=== PATIENT | female | born 1990 | race Caucasian/White ===

== ENCOUNTER 2020-05-06 18:23 | Emergency (ER) | payer MEDICAID, SELFPAY ==
[2020-05-06 18:24] VITALS: BP 86/26; PULSE 89; RESP 16; TEMP 35.6; O2SAT 95; BMI 19.1
--- NOTE | 2020-05-06 18:31 | CT_ITS ---
STUDY: CT BRAIN WITHOUT CONTRAST REASON FOR EXAM: Female, 30 years old. SHAW and quot;EVERY SINGLE DAY FOR MY WHOLE LIFE and quot; N/T FACE, HANDS, KNEES RADIATION DOSAGE (If Supplied By Facility): CTDIvol = ( 44.99 ) mGy, DLP = ( 711.75 ) mGycm TECHNIQUE: Transaxial CT imaging of the brain was performed without administration of intravenous contrast material. Individualized dose optimization techniques were used for this CT. COMPARISON: No relevant priors. FINDINGS: Normal soft tissue structures. Normal calvarium. Normal size ventricles and extra-axial spaces for the patient''s age. Normal white matter tracts of the cerebral hemispheres. Normal basal ganglia and thalami. Normal brainstem. Normal cerebellum. There is no intracranial hemorrhage. There are no findings of an acute ischemic infarction. Normal visualized paranasal sinuses. CT/Brain/Head without Contrast IMPRESSION: Normal unenhanced CT scan of the brain. Electronically Signed: Amor Brannon MD at 19:40 EST , Service support ,
--- NOTE | 2020-05-06 18:36 | ED.VIS.GEN ---
History of Present Illness Chief Complaint: Headache Informant: Patient Onset: Days Context: Gradual Onset Timing: Continuous Current Severity: Mild Maximum Severity: Moderate Narrative: The patient is a 30-year-old female that presents to the emergency department with headache. Patient states she is had a history of migraine headaches. She states she is not sure if it is because she has poor vision. States she gets headaches almost daily. She has followed with her primary care for this. She was started on Topamax. She took a dose yesterday and today. She states she began to have some paresthesias and nausea. She states she is never taken this medication before. She was concerned because of these persistent headache. She is also concerned that she may be having reaction to the medication. She denies any other medical history. She denies any head trauma. She denies any car monoxide exposure. Prior similar symptoms: Yes Recent Illness/Hospitalization: No Past Medical History - Allergies and Home Meds Allergies/Adverse Reactions: Allergies No Known Allergies Allergy (Verified 05/06/20 18:26) Primary Care Physician: Herminia Bucio PREVENTION SPECIALIST, PREVENTION SPECIALIST-C [Primary Care Provider] - Prior records reviewed: Yes Past Medical History: - - Migraine Surgical History: noncontributory Review of Systems General: Denies: Chills, Fever, Sweats Eyes: Denies: Visual changes - bilaterally, Diplopia ENT: Denies: Rhinorrhea, Sore throat Cardiovascular: Denies: Chest pain, Palpitations Respiratory: Denies: Dyspnea, Cough, Dyspnea on exertion Gastrointestinal: Reports: Nausea. Denies: Abdominal pain, Vomiting, Diarrhea, Melena, Hematochezia Genitourinary: Denies: Dysuria, Hematuria, Frequency Musculoskeletal: Denies: Back pain, Extremity Pain Skin: Denies: Rash, Wounds Neurological: Reports: Headache, Parasthesia. Denies: Weakness, Numbness Physical Exam Vital Signs/Narrative: Vital Signs Temp Pulse Resp BP Pulse Ox 05/06/20 18:24 96.1 F L 89 16 86/26 L 95 Inital Vital Signs reviewed: Yes General: Well nourished, Well developed, No Acute Distress Head: Normocephalic, Atraumatic Eyes: Perrl, EOMI ENT: Moist mucous membranes, No rhinorrhea Neck: Supple, Nontender Cardiovascular: Regular rate, Regular rhythm, No murmurs Respiratory: No distress, CTA bilaterally, Chest nontender Abdomen: Soft, Nontender, Nondistended, Normal bowel sounds Back: Nontender, Normal Inspection Extremities: Nontender, No edema Skin: Normal color, No rash Neurological: Alert, Oriented x3, Cranial nerves II-XII grossly intact, Normal Strength, Normal Sensation Psychological: Normal affect, Normal Mood Diagnostic/Tx/Re-eval Clinical Impression(s) from Imaging Studies Brain CT 05/06/20 18:31 IMPRESSION: Normal unenhanced CT scan of the brain. Electronically Signed: Amor Brannon MD at 19:40 EST , Service support , Abnormal Lab Results 05/06/20 05/06/20 19:00 19:00 WBC 6.8 RBC 4.63 Hgb 14.2 Hct 42.2 MCV 91.1 MCH 30.7 MCHC 33.6 RDW Std Deviation 38.3 RDW Coeff of Liz 11.4 L Plt Count 248 MPV 10.0 Immature Gran % (Auto) 0.100 Neut % (Auto) 51.8 Lymph % (Auto) 38.7 [place] % (Auto) 5.3 Eos % (Auto) 3.4 Baso % (Auto) 0.7 Absolute Neuts (auto) 3.5 Absolute Lymphs (auto) 2.64 Nucleated RBC % 0 Urine Test Negative - Medical Decision Making I do feel the patient is likely having a reaction to her Topamax. She is not having Overton-Adonay or other dangerous reaction. However, given her history of headache and the fact she is had no imaging I did obtain noncontrast head CT. This was negative for acute process. Screening labs were obtained and are relatively unremarkable. Patient was given fluids and is resting comfortably. At this point, I do feel the most prudent thing would be to have her stop her Topamax and follow-up with her primary care physician. She is comfortable with this plan of care. Impression 1. Migraine 2. Medication reaction ED Disposition - Plan for ED Patient: Instructions: ED Headache Unspecified, ED Drug Reaction, Other Referrals: Herminia Bucio NP, PREVENTION SPECIALIST-C [Primary Care Provider] -
[2020-05-06] MEDS: 0.9% Normal Saline 1,000 ML 1000 ML IV (19:08)
[2020-05-06 19:18] LABS: Absolute Lymphocyte Count 2.64 X10^3/uL (0.83-4.51); Absolute Neutrophil Count 3.5 X10^3/uL (2.0-7.7); Basophil# 0.05 X10^3/uL; Basophil% 0.7 % (0-1); Eosinophil# 0.23 X10^3/uL; Eosinophils% 3.4 % (0-5); Hematocrit 42.2 % (37-47); Hemoglobin 14.2 g/dL (12.0-15.0); Lymphocyte # 2.64 X10^3/ul (4.0); Lymphocyte % 38.7 % (19-41); Mean Corp Hgb Conc 33.6 g/dL (32-36); Mean Corpuscular Hgb 30.7 pg (27.0-32.0); Mean Corpuscular Volume 91.1 fL (81-99); Monocyte# 0.36 X10^3/uL; Monocyte% 5.3 % (0-10); NRBC Flagged by Analyzer 0 % (0-5); Neutrophil # 3.54 X10^3/uL (2.7-7.7); Neutrophil % 51.8 % (47-70); Platelet Count 248 K/mm3 (150-450); RBC Distribution Width CV 11.4 % (11.6-14.6); RBC Distribution Width SD 38.3 fl (35.1-43.9); Red Blood Count 4.63 M/mm3 (4.2-5.4); White Blood Count 6.8 K/mm3 (4.4-11.0)
[2020-05-06 19:57] LABS: Internal QC Validated? YES +Cl - CLEAR BKGD; Pregnancy, Urine Negative Negative
[2020-05-06 20:04] LABS: ALB/GLOB Ratio 1.2 RATIO (0.9-2.4); AST(SGOT) 10 U/L (15-37); Alanine Aminotransfer ALT/SGPT 23 U/L (13-56); Albumin, Serum 4.2 g/dL (3.2-5.0); Alkaline Phosphatase 68 U/L (45-117); Anion Gap 5 (5-15); BUN 12 mg/dL (7-18); BUN/Creat Ratio 13.9 RATIO (10-20); Calcium,Total 8.6 mg/dL (8.5-10.1); Chloride 113 mmol/L (98-107); Creatinine, Serum 0.86 mg/dL (0.55-1.02); EST Glomerular Filtration Rate 83 mL/min (>60); Est Glom Filt Rate - Afr Amer 101 mL/min (>60); Estimated Creatinine Clearance 75.34 ml/min; Globulin 3.4 g/dL (2.2-4.2); Glucose 82 mg/dL (74-106); Potassium 3.7 mmol/L (3.5-5.1); Protein, Total 7.6 g/dL (6.4-8.2); Sodium Level 142 mmol/L (136-145)
[2020-05-06 20:11] VITALS: BP 108/64; PULSE 59; RESP 16; O2SAT 98
== END 2020-05-06 20:13 | disposition home or self-care (01) ==
LOC: ED 19:41
PROVIDERS: Emergency Provider Emergency Medicine; PCP Nurse Practitioner Family
DX: G43.909 Migraine, unspecified, not intractable, without status migrainosus (principal); T42.6X5A Adverse effect of other antiepileptic and sedative-hypnotic drugs, initial encounter
CPT/HCPCS: 70450; 80053; 81025; 85025; 96360; 99284; J7030

== ENCOUNTER 2020-07-02 08:09 | Emergency (ER) | payer MEDICAID, SELFPAY ==
[2020-07-02 08:09] VITALS: BP 128/89; PULSE 84; RESP 16; TEMP 36.1; O2SAT 97; BMI 19.5
--- NOTE | 2020-07-02 08:26 | ED.VIS.GEN ---
History of Present Illness Chief Complaint: Ear Problem Informant: Patient Onset: Today Current Severity: Mild Maximum Severity: Mild Narrative: Presents secondary to right ear pain that started during the night. She states she does have a history of frequent ear infections and has had tubes placed in her ears twice. She denies recent URI symptoms. - Past Medical History (1) Asthma Status: Chronic Past Medical History - Allergies and Home Meds Allergies/Adverse Reactions: Allergies No Known Allergies Allergy (Verified 07/02/20 08:09) Primary Care Physician: Herminia Bucio COAT REPAIR INSPECTOR, COAT REPAIR INSPECTOR-C [Primary Care Provider] - Prior records reviewed: Yes Surgical History: noncontributory Smoking Status: Current every day smoker Review of Systems General: Denies: Chills, Fever Eyes: Denies: Visual changes - bilaterally ENT: Reports: Right ear pain Cardiovascular: Denies: Chest pain Respiratory: Denies: Dyspnea, Cough Gastrointestinal: Denies: Abdominal pain, Nausea, Vomiting, Diarrhea Musculoskeletal: Denies: Extremity Pain Skin: Denies: Rash Neurological: Reports: Headache Hematologic: Denies: Easy bruising, Easy bleeding Allergy: Denies: Uticaria Physical Exam Vital Signs/Narrative: Vital Signs Temp Pulse Resp BP Pulse Ox 07/02/20 08:09 97.0 F L 84 16 128/89 H 97 Inital Vital Signs reviewed: Yes General: Well nourished, Well developed Head: Normocephalic Eyes: Perrl, EOMI ENT: Moist mucous membranes, - - Significant wax noted in the right ear canal. Appears to be clear fluid behind the tympanic membrane. Left TM is clear.. Negative for: Sinus tenderness Neck: Supple Cardiovascular: Regular rate, Regular rhythm Respiratory: No distress Abdomen: Soft Skin: Normal color, No rash Neurological: Alert, Oriented x3 Psychological: Normal affect Diagnostic/Tx/Re-eval - Medical Decision Making Debrox was placed in the right ear and ear was irrigated. On repeat examination she still has some mild wax noted in the canal. Distal to this is noted erythema with some fluid behind the tympanic membrane. She will be covered with antibiotics and will use Debrox daily at home. ED Disposition - Plan for ED Patient: Disposition: Home or Assisted Living Diagnosis: Otitis media, Cerumen impaction Instructions: ED Cerumen Impaction Treated, ED Otitis Media Antibiotic ... Prescriptions: Amox/Clavulanate Tablet [Augmentin Tablet] 105 mg PO Q12H #20 tab Transmission Status: Pending to [facility]30 Referrals: Herminia Bucio COAT REPAIR INSPECTOR, COAT REPAIR INSPECTOR-C [Primary Care Provider] - 1 Week if not improving
[2020-07-02] MEDS: Carbamide Peroxide 15 ML Bottle 5 DRP OTIC (08:39)
[2020-07-02] MEDS: Amox/Clavulanate 875 MG Tablet PO (09:33)
[2020-07-02 09:36] VITALS: PULSE 83; RESP 16; O2SAT 99
== END 2020-07-02 09:38 | disposition home or self-care (01) ==
PROVIDERS: Emergency Provider Emergency Medicine; PCP Nurse Practitioner Family
DX: H66.91 Otitis media, unspecified, right ear (principal); H61.21 Impacted cerumen, right ear; F17.200 Nicotine dependence, unspecified, uncomplicated
CPT/HCPCS: 99283

== ENCOUNTER 2022-05-25 21:05 | Emergency (ER) | payer MEDICAID, SELFPAY ==
[2022-05-25 21:06] VITALS: BP 123/82; PULSE 97; RESP 17; TEMP 36.1; O2SAT 99; BMI 19.8
--- NOTE | 2022-05-25 21:48 | RAD_ITS ---
INDICATION: Cough, left rib pain EXAMINATION/TECHNIQUE: X-RAY - XR Ribs Unilateral W/ PA Chest Min 3 Views COMPARISON: None. FINDINGS: SOFT TISSUES: No soft tissue swelling or gas. BONES: No displaced fracture. No sclerotic or destructive changes observed. VISUALIZED LUNGS: Clear. No pneumothorax. RAD/Ribs Uni Min 3V w/PA Chest IMPRESSION: No evidence of displaced rib fracture. Electronically Signed: Victorino Moffett MD at 22:11 EST ,
--- NOTE | 2022-05-25 21:54 | EDS_ITS ---
HPI History of Present Illness Chief Complaint: Back Informant: patient Onset/Context/Timing Onset: Today and Hours (1-2) Context: Sudden Onset Timing: Continuous Quality: Sharp Location: Left thoracic area Worsened by: Standing Relieved by: Laying down Narrative Narrative: Patient presents with pain in the left side of her back and left chest area that began tonight. Patient states it began rather suddenly. Patient describes it as sharp. Patient states it is over the left thoracic area and radiates around to her left lateral chest. Patient states it is worse with standing and better when she is able to lie down. Patient denies any shortness of breath. Patient denies any nausea or vomiting. Patient admits to a mild headache. Patient admits to some subjective chills. Patient denies any nausea or vomiting. [facility] Medical History (Updated 05/25/22 @ 22:[address] Santiago Beaulieu DO) Asthma Home Medications amoxicillin 875 mg-potassium clavulanate 125 mg tablet 875 mg PO Q12H #20 tabs 07/02/20 [Rx Last Taken Unknown] Allergy/AdvReac Type Severity Reaction Status Date / Time No Known Allergies Allergy Verified 05/25/22 21:08 Surgical History (Updated 05/25/22 @ 21:[address] Santiago Beaulieu DO) Hx of tonsillectomy Hx of tympanostomy tubes Social History Smoking Status: Current every day smoker tobacco type: cigarettes ROS ROS ED Constitutional Constitutional ED: Reports chills and subjective; Denies fever(s) Eyes Eyes: Denies blurry vision or change in vision ENT ENT ED: Denies rhinorrhea or sore throat Cardiovascular Cardiovascular: Reports chest pain; Denies palpitations Respiratory/Chest Respiratory/Chest: Denies cough or dyspnea Gastrointestinal Gastrointestinal: Denies nausea or vomiting Genitourinary Genitourinary ED: Denies dysuria or hematuria Musculoskeletal Musculoskeletal: Reports back pain; Denies neck pain Integumentary Denies abscess or rash Neurologic Neurologic: Reports headache(s); Denies weakness Allergic/Immunologic Allergic/Immunologic ED: Denies mouth swelling or urticaria EXAM Physical Exam Const Vital Signs: 05/25/22 21:06 Temperature 97.0 F L Temperature Source Temporal Pulse Rate 97 Respiratory Rate 17 Blood Pressure 123/82 H Blood Pressure Mean 95 Pulse Ox 99 Oxygen Delivery Method Room Air Positive well nourished and well developed General Appearance ED: well developed and NAD HEENT Reports moist mucous membranes Neck supple and no JVD Resp normal respiratory effort and clear to auscultation bilaterally Cardio regular rate, regular rhythm and no murmurs GI normal to inspection, nondistended, normoactive bowel sounds and non-tender Palpation: soft Back/Spine Back/Spine Narrative: There is tenderness over the left posterior thoracic paraspinal area. There is no bony crepitance or step-off. There is no edema or ecchymosis. There is no deformity noted. Range of motion was limited in all motions of the thoracic spine secondary to pain. Thoracic Spine / Upper Back: paraspinal muscle tenderness left Extremity normal to inspection General Extremety ED: Negative for edema or tenderness General Extremity: Negative for edema Neuro oriented x3, CN's II-XII intact bilaterally and no sensory deficits noted Sensorium / Orientation: alert Motor Exam: strength 5/5 throughout Psych mental status grossly normal Skin no rashes or lesions noted MDM MDM MDM Narrative Medical decision making narrative: Differential diagnosis includes musculoskeletal etiology, pneumonia, pneumothorax, and pleurisy. X-rays of the left ribs will be obtained to assess for rib fracture, pneumonia, and pneumothorax. Patient is PERC negative and has no risk factors for pulmonary embolism. I do not feel this is in the differential diagnosis. Patient has no cardiac risk factors. I do not feel that this is cardiac in etiology. Radiography Diagnostic Testing: Clinical Impression(s) from Imaging Studies Ribs w/Chest X-Ray 05/25/22 21:48 IMPRESSION: No evidence of displaced rib fracture. Electronically Signed: Victorino Moffett MD at 22:11 EST Reading Location ID and State: [facility] / [place] Tel , Service support , X-rays of the left ribs were obtained. There are 5 views. On my independent interpretation, there are no rib fractures noted. There is no pneumothorax. There is no pneumonia. There is no other acute process noted. Radiologist also interpreted the x-rays and agrees. Treatment and Re-Evaluation Narrative: Patient was advised of her findings. Patient was advised that this is most likely a muscular strain. Patient was instructed to use ice to the area. Patient was instructed to take Tylenol or ibuprofen as needed for pain. Patient was instructed to follow-up with her primary care physician in 5 to 7 days. Patient understood and was agreeable with the plan. All questions were answered. Discharge Plan Triage Chief Complaint: Back ED Provider: Santiago Beaulieu Dx/Rx/DC Orders Clinical Impression: Acute thoracic myofascial strain Instructions: ED Back Sprain/Strain Prescriptions: No Action amoxicillin-pot clavulanate 875 MG tablet 875 mg PO Q12H Qty: 20 0RF Primary Care Provider: Herminia Bucio NP Referrals: Herminia Bucio NP, CRUISE COUNSELOR-C [Primary Care Provider] - 5-7 Days Disposition Disposition: Home, Self Care
[2022-05-25 22:41] VITALS: BP 122/62; PULSE 78; RESP 18
== END 2022-05-25 22:42 | disposition home or self-care (01) ==
PROVIDERS: Emergency Provider Emergency Medicine; PCP Nurse Practitioner Family; Visit Provider Emergency Medicine
DX: S29.012A Strain of muscle and tendon of back wall of thorax, initial encounter (principal); X58.XXXA Exposure to other specified factors, initial encounter; F17.210 Nicotine dependence, cigarettes, uncomplicated
CPT/HCPCS: 71101; 99284

== ENCOUNTER → 2023-02-13 | Outpatient (CLI) | payer MEDICAID, SELFPAY ==
[2023-02-13 12:30] VITALS: PULSE 100; PULSE 101; PULSE 103; PULSE 104; PULSE 105; PULSE 86; PULSE 87; PULSE 98; O2SAT 93; O2SAT 94; O2SAT 95; O2SAT 96; O2SAT 97; O2SAT 99
--- NOTE | 2023-02-14 08:07 | PCM.PSN.6M ---
PSN 6 Minute Walk Test 6 Minute Walk Test 6 Minute Walk Test: 6 Minute Walk Test PSN:6-Minute Walk Test Start: 02/13/23 13:32 Freq: Status: Active Protocol: [id number].6MINW Document 02/13/23 12:30 JR (Rec: 02/13/23 13:34 JR Desktop) 6 Minute Walk Test Date Performed 02/13/23 Time Performed 12:30 Height 5 ft 3 in Weight: 107 lb Weight in Pounds 107.[address]: Gregory Hutton Assistive device used: None Pre-test Oxygen Delivery Method Room Air Pulse Ox 99 Pulse Rate (60-100) 87 Dyspnea Delisa Scale (0-10) 4 Exertion Delisa Scale (6-20) 6 1st minute Oxygen Delivery Method Room Air Pulse Ox 96 Pulse Rate (60-100) 101 H 2nd minute Oxygen Delivery Method Room Air Pulse Ox 95 Pulse Rate (60-100) 105 H 3rd minute Oxygen Delivery Method Room Air Pulse Ox 94 Pulse Rate (60-100) 103 H 4th minute Oxygen Delivery Method Room Air Pulse Ox 93 Pulse Rate (60-100) 104 H 5th minute Oxygen Delivery Method Room Air Pulse Ox 97 Pulse Rate (60-100) 100 6th minute Oxygen Delivery Method Room Air Pulse Ox 93 Pulse Rate (60-100) 98 Dyspnea Delisa Scale (0-10) 4 Exertion Delisa Scale (6-20) 11 Post-test Oxygen Delivery Method Room Air Pulse Ox 99 Pulse Rate (60-100) 86 Full Laps Walked 20 Partial Lap, Number of Tiles Walked 10 Total Distance Walked (ft) 1190 Interpretation Interpretation: The patient ambulated 1190 feet over the course of 6 minutes beginning on room air without assistive devices. Pretesting oxygen saturation was noted to be 99% on room air. With ambulation, the chana oxygen saturation was 93%. This represents a significant exertional oxygen desaturation. Recommendations Recommendations: There is no indication for the use of supplemental oxygen at this time. However, close interval follow-up was recommended, given the degree of oxygen desaturation noted during this study.
== END | disposition home or self-care (01) ==
LOC: PSN 12:35
PROVIDERS: PCP Nurse Practitioner Family; Referring Provider Internal Medicine Critical Care Medicine; Visit Provider Internal Medicine Critical Care Medicine
DX: R06.00 Dyspnea, unspecified (principal); R94.2 Abnormal results of pulmonary function studies
CPT/HCPCS: 94618

== ENCOUNTER → 2023-02-21 | Outpatient (CLI) | payer MEDICAID, SELFPAY ==
--- NOTE | 2023-02-21 14:02 | ECHOD_ITS ---
Reason For Study: DYSPNEA Procedure This was a 2D Doppler, Color Flow transthoracic echocardiogram. Exam performed in department. Left Ventricle Normal size and thickness. The left ventricular ejection fraction is 65 %. Normal diastology for age. Right Ventricle Normal right ventricle. Atria The left and right atria are normal. Mitral Valve The mitral valve is structurally normal. No prolapse or stenosis seen. Tricuspid Valve Trivial tricuspid valve insufficiency. Normal pulmonary artery pressure. Aortic Valve Trisinus/trileaflet aortic valve. Pulmonic Valve The pulmonic valve is not well visualized. Great Vessels Normal sized aortic root. Pericardium/Pleural No pericardial effusion. MMode/2D Measurements & Calculations LVIDd: 4.0 cm IVSd: 0.78 cm Ao root diam: 2.5 cm LVIDs: 2.5 cm LVPWd: 0.67 cm RVDd: 2.7 cm FS: 36.6 % LAV(MOD-bp): 25.6 ml LVAd ap4: 22.5 cm2 SV(MOD-sp4): 30.7 ml LAV(MOD-bp) Indexed: 17.2 ml/m2 LVLd ap4: 8.1 cm LAV(MOD-sp2): 31.2 ml EDV(MOD-sp4): 52.6 ml LAV(MOD-sp4): 17.3 ml EDV(sp4-el): 53.1 ml LVAs ap4: 13.0 cm2 LVLs ap4: 6.8 cm ESV(MOD-sp4): 21.8 ml ESV(sp4-el): 21.1 ml EF(MOD-sp4): 58.4 % EF(sp4-el): 60.3 % SV(sp4-el): 32.0 ml LA A4 area: 10.5 cm2 LA dimension(2D): 2.6 cm RA A4 area: 11.0 cm2 TAPSE: 2.0 cm Time Measurements MV dec time: 0.23 sec Doppler Measurements & Calculations MV E max adal: 92.4 cm/sec Lat Peak E' Adal: 19.5 cm/sec Med Peak E' Adal: 12.9 cm/sec MV A max adal: 49.7 cm/sec E/E' lat: 4.7 E/E' med: 7.2 MV E/A: 1.9 MV V2 max: 99.4 cm/sec Ao V2 max: 107.1 cm/sec MV max P.0 mmHg MV dec slope: 413.5 cm/sec2 Ao max P.6 mmHg MV V2 mean: 62.8 cm/sec Ao V2 mean: 78.6 cm/sec MV mean P.8 mmHg Ao mean P.8 mmHg MV V2 VTI: 27.0 cm Ao V2 VTI: 25.0 cm AV (velocity ratio): 0.77 LV V1 max: 93.5 cm/sec PA V2 max: 101.5 cm/sec LV V1 max P.5 mmHg PA V2 mean: 71.3 cm/sec LV V1 mean P.0 mmHg LV V1 mean: 66.9 cm/sec LV V1 VTI: 19.2 cm ECHO/Echo Complete Interpretation Summary The left ventricular ejection fraction is 65 %. Ordering Physician: Gregory Hutton Referring Physician: Gregory Hutton Performed By: Kalyani Gallegos RCS
== END | disposition home or self-care (01) ==
LOC: CVS 14:02
PROVIDERS: PCP Nurse Practitioner Family; Referring Provider Internal Medicine Critical Care Medicine; Visit Provider Internal Medicine Critical Care Medicine
DX: R06.02 Shortness of breath (principal)
CPT/HCPCS: 93306

== ENCOUNTER → 2023-03-06 | Outpatient (CLI) | payer MEDICAID, SELFPAY ==
--- NOTE | 2023-03-06 17:38 | CT_ITS ---
INDICATION: Restriction on PFT EXAMINATION: CT Chest W/O Contrast Injection TECHNIQUE: Helically acquired images were obtained of the chest without IV contrast. A radiation dose optimization technique was used for this scan. COMPARISON: None. FINDINGS: Lungs: Unremarkable Mediastinum: The cardiomediastinal silhouette is not enlarged. No mediastinal, hilar or axillary adenopathy. The thoracic aorta is unremarkable. No coronary artery calcification. Pleura: Unremarkable Bones/Soft tissues: No suspicious osseous or soft tissue lesions Upper abdomen: No visualized abnormalities in the upper abdomen. CT/Chest without Contrast IMPRESSION: No acute abnormalities in the chest. Electronically Signed: Chandu Boo MD at 0:04 EST ,
== END | disposition home or self-care (01) ==
LOC: CT 17:36
PROVIDERS: PCP Nurse Practitioner Family; Referring Provider Internal Medicine Critical Care Medicine; Visit Provider Internal Medicine Critical Care Medicine
DX: R06.00 Dyspnea, unspecified (principal); R94.2 Abnormal results of pulmonary function studies
CPT/HCPCS: 71250

== ENCOUNTER → 2023-06-05 | Outpatient (CLI) | payer MEDICAID, SELFPAY ==
[2023-06-05 13:08] LABS: HIV - WCH Non-Reactive (Nonreactive); Hepatitis C Antibody Non-Reactive (Nonreactive); Syphilis Antibodies Non-reactive
[2023-06-06 07:08] LABS: HSV 1 IgG < 0.91 index (0.00-0.90); HSV 2 IgG 4.54 index (0.00-0.90)
[2023-06-07 08:12] LABS: Chlamydia By Nucleic Acid AMP Negative (Negative); Gonococcus By Nucleic Acid AMP Negative (Negative)
[2023-06-08 12:09] LABS: HPV APTIMA, High Risk Negative (Negative)
== END | disposition home or self-care (01) ==
PROVIDERS: PCP Nurse Practitioner Family; Referring Provider Nurse Practitioner Women's Health; Visit Provider Nurse Practitioner Women's Health
DX: Z12.4 Encounter for screening for malignant neoplasm of cervix (principal); N89.8 Other specified noninflammatory disorders of vagina; Z20.2 Contact with and (suspected) exposure to infections with a predominantly sexual mode of transmission
CPT/HCPCS: 36415; 86695; 86696; 86703; 86780; 86803; 87070; 87205; 87491; 87591; 87624; 88175; G0145

== ENCOUNTER 2023-07-31 04:14 | Emergency (ER) | payer MEDICAID, SELFPAY ==
[2023-07-31] MEDS: Lidocaine 1% (20 ml mdv) 20 ML Vial INFILT (04:29)
[2023-07-31] MEDS: Diphth,Pertuss(Acell),Tet Vac 0.5 ML Vial IM (04:29)
[2023-07-31 04:31] VITALS: BP 119/91; PULSE 87; RESP 16; TEMP 36.3; O2SAT 98; BMI 20.5
--- NOTE | 2023-07-31 05:05 | EX.ED.DYSGE1 ---
HPI History of Present Illness Chief Complaint: Wound Informant: patient Narrative Narrative: Patient presents by ambulance at around 4 AM with her 2 children after locking the 3 of them in a closet to escape their cat, who was attacking them all. They state it is an indoor cat, is not ill, has not been outside recently, and this started in the middle of the night with one of the 2 children it woke mom up because the cat was attacking her. The cat apparently just had kittens. Mom got involved and the cat attacked her as well. Mom/patient states that she sustained scratches and no bites. Scratches to the face, and a laceration to her left ear. Last tetanus was more than 10 years ago she thinks. She denies any other injuries. No injury to her eye. PFSH PFSH Medical History Allergic rhinitis Anxiety and depression Asthma Bacterial vaginosis Cervical motion tenderness Contraception management Heartburn Hiatal hernia with GERD History of chlamydia infection Ovary palpable Reactive airway disease Tobacco use Upper respiratory infection Vaginal discharge Wheezing Home Medications NK 07/31/23 [History Last Taken Unknown] Allergy/AdvReac Type Severity Reaction Status Date / Time No Known Allergies Allergy Verified 07/31/23 04:15 Family History Grandmother Breast cancer Maternal Surgical History Hx of tonsillectomy Hx of tympanostomy tubes Social History number of children: 3 current occupational status: employed current occupation: [employer] Smoking Status: Current every day smoker tobacco type: cigarettes Electronic Cigarette Use: with nicotine how long ago did patient quit smoking: cigarettes alcohol intake: never substance use type: does not use seatbelt use: always do you feel safe at home: Yes additional social history: Single 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 Stellate laceration to the left ear, and involves the earlobe as well as a fold over cartilage toward the inferior aspect of the EAC. Tragus is not involved, but just outside of it. Total length is about 2 cm, stellate in 3 different directions, there is noted soft tissue loss and no cartilage grossly exposed. Extremity normal to inspection Extremity Narrative: F ROM x 4 General Extremety ED: Negative for tenderness Neuro oriented x3, CN's II-XII intact bilaterally and no sensory deficits noted Sensorium / Orientation: alert Motor Exam: strength 5/5 throughout Psych mental status grossly normal Mood & Affect: anxious Skin Skin Narrative: See HEENT exam. No signs of trauma elsewhere. MDM MDM MDM Narrative Medical decision making narrative: Patient's tetanus was updated, and the wound was anesthetized locally and repaired see the procedure note. Advised to follow-up for wound reevaluation and suture removal. I do not think she needs antibiotics for infection prophylaxis, she did not have any bites, the ear was irrigated thoroughly and appeared clean. Procedures Lacerations L ear: Length: 2.5 cm Depth: Sub Q Shape: Stellate Prep: Sterile Conditions and Chlorhexadine Laceration repair: Irrigated, Lidocaine (plain 1%, 2cc), Local and Skin sutures Irrigated (ml): 30 Number of Sutures/Parlier: 6 Suture Information: Ethilon, Simple and 5-0 Discharge Plan Triage Chief Complaint: Wound ED Provider: Kevin Macdonald Dx/Rx/DC Orders Clinical Impression: Cat scratch of face, Immunization, tetanus-diphtheria, Laceration of left ear Instructions: Animal Bites and Scratches, ED FACIAL LACERATION Suture Tape Prescriptions: No Action NK Primary Care Provider: Herminia Bucio NP Referrals: Herminia Bucio DURALUMIN METALWORKER, DURALUMIN METALWORKER-C [Primary Care Provider] - 7 Days for suture removal (or urgent care/ER) Activity Restrictions/Additional Instructions: keep neosporin or other antibiotic ointment on area at least until scabbed and no drainage. Disposition Disposition: Home, Self Care Discharge Date/Time: 07/31/23 05:20
== END 2023-07-31 05:20 | disposition home or self-care (01) ==
PROVIDERS: Emergency Provider Emergency Medicine; PCP Nurse Practitioner Family; Visit Provider Emergency Medicine
DX: S01.312A Laceration without foreign body of left ear, initial encounter (principal); W55.01XA Bitten by cat, initial encounter; Y93.89 Activity, other specified; Y99.8 Other external cause status; F17.210 Nicotine dependence, cigarettes, uncomplicated; Z23 Encounter for immunization
CPT/HCPCS: 12011; 90471; 90715; 99283

== ENCOUNTER 2023-10-20 13:08 | Emergency (ER) | payer MEDICAID, SELFPAY ==
[2023-10-20 13:08] VITALS: BP 123/93; PULSE 83; RESP 14; TEMP 36.2; O2SAT 100; BMI 20.9
--- NOTE | 2023-10-20 13:18 | ED.VIS.FEGU ---
HPI HPI - Female History of Present Illness Chief Complaint: Female C/O Detail of Chief Complaint: Yeast infection Informant: patient Narrative Narrative: Patient presents secondary to yeast infection. She states for the past 8 or 9 days she has had white discharge and itching. She was seen at the emergency department at [facility] last week. She had a pelvic exam. I was able to review those results. Her urinalysis negative and her gonorrhea and Chlamydia testing were negative. Patient states that she was given a dose of Diflucan and then Monistat cream for home. She states that the cream does not work and she is here to get another pill. She has been on antibiotics recently but is not currently on antibiotics. [facility] Medical History Wheezing Vaginal discharge Upper respiratory infection Tobacco use Reactive airway disease Contraception management Cervical motion tenderness Bacterial vaginosis Allergic rhinitis History of chlamydia infection Anxiety and depression Ovary palpable Hiatal hernia with GERD Heartburn Asthma Home Medications ?Medication ?Instructions ?Recorded ?Last Taken ?Type medroxyprogesterone 150 mg/mL mg IM 08/28/23 Unknown History intramuscular suspension fluconazole 200 mg tablet 200 mg PO DAILY #1 TAB 10/20/23 Unknown Rx (Diflucan) Allergy/AdvReac Type Severity Reaction Status Date / Time No Known Allergies Allergy Verified 08/28/23 10:01 Family History Grandmother Breast cancer Maternal Surgical History Hx of tympanostomy tubes Hx of tonsillectomy Social History number of children: 3 current occupational status: employed current occupation: [employer] Smoking Status: Current every day smoker tobacco type: cigarettes Electronic Cigarette Use: with nicotine how long ago did patient quit smoking: cigarettes alcohol intake: never substance use type: does not use seatbelt use: always do you feel safe at home: Yes additional social history: Single 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, weed, alcohol and crack ROS ROS ED Constitutional Constitutional ED: Denies chills or fever(s) Eyes Eyes: Denies discharge from eye(s) ENT ENT ED: Denies discharge from eye(s), rhinorrhea or sore throat Cardiovascular Cardiovascular: Denies chest pain or palpitations Respiratory/Chest Respiratory/Chest: Denies cough or dyspnea Gastrointestinal Gastrointestinal: Denies abdominal pain, nausea or vomiting Genitourinary Genitourinary ED: Reports other Details: White vaginal discharge and itching ; Denies dysuria Musculoskeletal Musculoskeletal: Denies back pain or extremity pain Integumentary Denies Abrasions or rash Neurologic Neurologic: Denies headache(s) or weakness Psychiatric Psychiatric: Denies anxiety or depression Allergic/Immunologic Allergic/Immunologic ED: Denies lip swelling or urticaria EXAM Physical Exam Const Vital Signs: 10/20/23 13:08 Temperature 97.2 F L Temperature Source Temporal Pulse Rate 83 Respiratory Rate 14 Blood Pressure 123/93 H Blood Pressure Mean 103 Pulse Ox 100 Oxygen Delivery Method Room Air Positive well nourished and well developed General Appearance ED: well developed HEENT Reports moist mucous membranes Chest Wall inspection of chest normal and palpation of chest normal Resp normal respiratory effort and clear to auscultation bilaterally Cardio regular rate and regular rhythm GI soft to palpation and non-tender Extremity normal to inspection Neuro oriented x3 and no sensory deficits noted Motor Exam: strength 5/5 throughout Psych mental status grossly normal Skin no rashes or lesions noted MDM MDM MDM Narrative Medical decision making narrative: X-rays able to review the patient's pelvic exam from last week and she denies any change in symptoms, we will forego pelvic exam today. Patient be given a dose of Diflucan here. I will write her prescription for 1 additional tab that she can take in 1 week. Patient comfortable with the plan. Discharge Plan Triage Chief Complaint: Female C/O ED Provider: Chrissie Gurrola Dx/Rx/DC Orders Clinical Impression: Yeast vaginitis Instructions: ED SONDRA VAGINITIS Prescriptions: New fluconazole [Diflucan] 200 mg tablet 200 mg PO DAILY Qty: 1 0RF No Action medroxyprogesterone 150 mg/mL suspension IM Primary Care Provider: Herminia Bucio NP Referrals: Herminia Bucio NP, [employer] [Primary Care Provider] - 1 Week if not improving Print Language: Divehi Disposition Disposition: Home, Self Care
[2023-10-20] MEDS: Fluconazole 100 MG Tablet 200 MG PO (13:43)
[2023-10-20 13:45] VITALS: BP 130/85; PULSE 72; RESP 18; TEMP 36.7; O2SAT 99
== END 2023-10-20 13:46 | disposition home or self-care (01) ==
LOC: ED 13:28
PROVIDERS: Emergency Provider Emergency Medicine; Visit Provider Emergency Medicine
DX: B37.31 Acute candidiasis of vulva and vagina (principal); F17.210 Nicotine dependence, cigarettes, uncomplicated
CPT/HCPCS: 99282

== ENCOUNTER 2023-12-19 13:49 | Emergency (ER) | payer MEDICAID, SELFPAY ==
[2023-12-19 13:50] VITALS: BP 132/90; PULSE 113; RESP 20; TEMP 36.6; O2SAT 98; BMI 20.9
[2023-12-19 14:20] LABS: Absolute Lymphocyte Count 0.53 X10^3/uL (0.83-4.51); Absolute Neutrophil Count 6.8 X10^3/uL (2.0-7.7); Basophil# 0.02 X10^3/uL; Basophil% 0.3 % (0-1); Hematocrit 42.5 % (37-47); Hemoglobin 14.7 g/dL (12.0-15.0); Lymphocyte # 0.53 X10^3/ul (0.83-4.51); Mean Corp Hgb Conc 34.6 g/dL (32-36); Mean Corpuscular Hgb 30.2 pg (27.0-32.0); Mean Corpuscular Volume 87.3 fL (81-99); Mean Platelet Vol. 10.1 fl (6.2-12.0); Monocyte% 2.6 % (0-10); NRBC Flagged by Analyzer 0 % (0-5); Neutrophil # 6.84 X10^3/uL (2.7-7.7); Neutrophil % 89.8 % (47-70); POSITIVE DIFFERENTIAL YES; Platelet Count 197 K/mm3 (150-450); RBC Distribution Width CV 12.1 % (11.6-14.6); RBC Distribution Width SD 38.8 fl (35.1-43.9); Red Blood Count 4.87 M/mm3 (4.2-5.4); White Blood Count 7.6 K/mm3 (4.4-11.0)
--- NOTE | 2023-12-19 14:34 | EDS_ITS ---
HPI History of Present Illness Chief Complaint: Nausea/Vomiting Informant: patient and spouse/S.O. Narrative Narrative: Presents for nontraumatic headache generalized soreness vomiting diarrhea since 3 AM yesterday morning 36 hours ago. States vomiting diarrhea too much.. Last time was 20 minutes ago. No recent antibiotics. Denies fevers or chills denies cough denies abdominal pain. She has a Depo shot therefore does not have menstrual periods. Had similar symptoms with stomach bug in the past. Denies sick contacts. Denies any allergies. She unable keep anything down. She cannot Emergency Department. Prior similar symptoms: Yes [facility] Medical History Wheezing Vaginal discharge Upper respiratory infection Tobacco use Reactive airway disease Contraception management Cervical motion tenderness Bacterial vaginosis Allergic rhinitis History of chlamydia infection Anxiety and depression Ovary palpable Hiatal hernia with GERD Heartburn Asthma Home Medications ?Medication ?Instructions ?Recorded ?Last Taken ?Type medroxyprogesterone 150 mg/mL mg IM 08/28/23 Unknown History intramuscular suspension albuterol sulfate 90 mcg/actuation inhalation 11/13/23 Unknown History aerosol inhaler ibuprofen 600 mg tablet 600 mg PO Q6 PRN 11/13/23 Unknown History omeprazole 20 mg capsule,delayed 20 mg PO QDAY 11/13/23 Unknown History release ondansetron 4 mg disintegrating 4 mg PO Q6-8H PRN 11/13/23 Unknown History tablet pseudoephedrine HCl 30 mg tablet mg PO 11/13/23 Unknown History (Nasal Decongestant (pseudoephedrine)) valacyclovir 500 mg tablet 500 mg PO QDAY 11/13/23 Unknown History ondansetron 4 mg disintegrating 4 mg PO Q8H PRN PRN Nausea #10 tabs 12/19/23 Unknown Rx tablet Allergy/AdvReac Type Severity Reaction Status Date / Time No Known Allergies Allergy Verified 12/19/23 13:50 Family History Grandmother Breast cancer Maternal Surgical History Hx of tympanostomy tubes Hx of tonsillectomy Social History number of children: 3 current occupational status: employed current occupation: [employer] Smoking Status: Current every day smoker tobacco type: cigarettes Electronic Cigarette Use: with nicotine how long ago did patient quit smoking: cigarettes alcohol intake: never substance use type: does not use seatbelt use: always do you feel safe at home: Yes additional social history: Single 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, weed, alcohol and crack ROS ROS ED Constitutional Constitutional ED: Denies chills, fever(s) or sweats Eyes Eyes: Denies change in vision ENT ENT ED: Denies dysphagia or sore throat Cardiovascular Cardiovascular: Denies chest pain, leg edema, palpitations or racing heartbeat Respiratory/Chest Respiratory/Chest: Denies cough, dyspnea or dyspnea on exertion Gastrointestinal Gastrointestinal: Reports diarrhea, nausea and vomiting; Denies abdominal pain Genitourinary Genitourinary ED: Denies dysuria, hematuria or urinary frequency Musculoskeletal Musculoskeletal: Reports myalgias; Denies back pain, extremity pain or neck pain Integumentary Denies rash or wounds Neurologic Neurologic: Reports headache(s); Denies paresthesias or weakness EXAM Physical Exam Const Vital Signs: 12/19/23 13:50 12/19/23 16:03 12/19/23 16:41 Temperature 97.8 F 98 F Temperature Source Temporal Pulse Rate 113 H 98 80 Respiratory Rate 20 H 16 16 Blood Pressure 132/90 H 103/58 L 99/60 Blood Pressure Mean 104 73 73 Pulse Ox 98 98 99 Oxygen Delivery Method Room Air Positive well nourished and well developed General Appearance ED: well developed and NAD HEENT HEENT Narrative: Slight dry mucosal membranes. normocephalic and atraumatic Eyes EOMs intact bilaterally and conjunctivae normal General Eye ED: Yes normal appearance of both eyes Neck no lymphadenopathy and supple Neck Narrative: No meningismus General: Negative for tenderness Chest Wall Chest: Negative for tenderness Resp normal respiratory effort and normal air movement Effort and Inspection: symmetric chest movement; Negative for respiratory distress Cardio regular rhythm and no murmurs Rate: tachycardic Peripheral Pulses: pulses 2+ throughout GI normal to inspection, nondistended, normoactive bowel sounds and non-tender GI Narrative: Negative Bello's or McBurney's tenderness. Palpation: Negative for guarding or rebound tenderness present Back/Spine no CVA tenderness and no thoracic nor lumbar tenderness Extremity normal to inspection General Extremety ED: Negative for edema or tenderness General Extremity: Negative for edema Neuro oriented x3, CN's II-XII intact bilaterally and no sensory deficits noted Sensorium / Orientation: awake and alert Skin no rashes or lesions noted and no wounds MDM MDM MDM Narrative Medical decision making narrative: Interventions / MDM: Differential diagnosis: Dehydration, electrolyte abnormalities, vomiting di arrhea Diagnosis considered but do not suspect: No C. difficile risk factors, nonsurgical abdomen. My EKG interpretation: N/A Imaging independently reviewed and interpreted by myself: N/A External documents reviewed: N/A Test considered but not ordered:N/A ED course: Patient slight dry mucosal membranes tachycardia vomiting diarrhea nonbloody. IV established for fluids antiemetics and Toradol as she denies any bloody stools. She declines any COVID testing. Labs urine noting ketones. Creatinine normal slight hypokalemia. Clinically feeling better on reevaluation trial oral fluids. Prescription of Zofran sent to her pharmacy. Heart rate improved with fluids. She continue oral fluids for hydration. Outpatient follow-up or return precaution discussed. All questions were answered. Re-evaluation: stable Disposition discussed with patient/family/significant other: Patient Case discussed with consulting clinician: N/A This note was generated with [employer] dictation software. It may contain incorrect words, spelling, and punctuation that were not noted in checking the note before signing. Lab Data Attestation: I reviewed the patient's lab results. Labs: Laboratory Results - last 24 hr 12/19/23 12/19/23 14:03 15:30 WBC 7.6 RBC 4.87 Hgb 14.7 Hct 42.5 MCV 87.3 MCH 30.2 MCHC 34.6 RDW Std Deviation 38.8 RDW Coeff of Liz 12.1 Plt Count 197 MPV 10.1 Immature Gran % (Auto) 0.300 Neut % (Auto) 89.8 H Lymph % (Auto) 7.0 L [place] % (Auto) 2.6 Eos % (Auto) 0.0 Baso % (Auto) 0.3 Absolute Neuts (auto) 6.8 Absolute Lymphs (auto) 0.53 L Nucleated RBC % 0 Sodium 134 L Potassium 3.3 L Chloride 101 Carbon Dioxide 25.0 Anion Gap 8 BUN 9 Creatinine 0.94 Estim Creat Clear Calc 71.73 Est GFR (MDRD) Af Amer 89 Est GFR (MDRD) Non-Af 74 BUN/Creatinine Ratio 9.6 L Glucose 106 Calcium 9.1 Total Bilirubin 0.70 AST 54 H ALT 45 Alkaline Phosphatase 82 Total Protein 8.1 Albumin 4.0 Globulin 4.1 Albumin/Globulin Ratio 1.0 Serum , Qual NEGATIVE Urine Color Yellow Urine Clarity Clear Urine pH 6.0 Ur Specific [place] 1.020 Urine Protein 100 H Urine Glucose (UA) Normal Urine Ketones 50 H Urine Occult Blood 10 H Urine Nitrite Negative Urine Bilirubin 1 H Urine Urobilinogen 1 H Ur Leukocyte Esterase 25 H Urine RBC 0-5 SEEN Urine WBC 0-5 SEEN Ur Squamous Epith Cells 0-5 SEEN Ur Renal Epithelial Cell 0-5 SEEN Urine Bacteria 2+ Urine Mucus 2+ Discharge Plan Triage Chief Complaint: Nausea/Vomiting ED Provider: Aung Gonzalez Dx/Rx/DC Orders Clinical Impression: Nausea, vomiting and diarrhea, Dehydration Instructions: Dehydration, ED Diet Vomiting Diarrhea Prescriptions: New ondansetron 4 mg tablet,disintegrating 4 mg PO Q8H PRN PRN (Reason: Nausea) Qty: 10 0RF No Action valacyclovir 500 mg tablet 500 mg PO QDAY ondansetron 4 mg tablet,disintegrating 4 mg PO Q6-8H PRN albuterol sulfate 90 mcg/actuation HFA aerosol inhaler inhalation ibuprofen 600 mg tablet 600 mg PO Q6 PRN omeprazole 20 mg capsule,delayed release(DR/EC) 20 mg PO QDAY pseudoephedrine HCl [Nasal Decongestant (pseudoeph)] 30 mg tablet PO medroxyprogesterone 150 mg/mL suspension IM Stand Alone Forms: ED Work / School Excuse Primary Care Provider: Care Physician,No Primary Referrals: Daisy Madera MD [Med Staff - Continuity Clerk] - 3-5 Days if not improving Care Physician,No Primary [Primary Care Provider] - Activity Restrictions/Additional Instructions: Normal kidney function numbers. Clinical dehydration. Continue oral fluids for hydration. Use Zofran as needed. Follow-up with Dr. Thakkar. Symptoms worsen not controlled medication return to ED for reevaluation. Print Language: Sri Lankan Disposition Disposition: Home, Self Care Discharge Date/Time: 12/19/23 16:45
[2023-12-19 14:35] LABS: Internal QC Validated? YES +Cl - CLEAR BKGD; Pregnancy, Serum, hCG Quali. NEGATIVE Negative
[2023-12-19] MEDS: 0.9% Normal Saline (1000mL) 1,000 ML 1000 ML IV (14:40)
[2023-12-19] MEDS: Ketorolac 15 MG/ML Vial IV (14:41)
[2023-12-19] MEDS: Ondansetron 4 MG/2 ML Vial IV (14:41)
[2023-12-19 15:06] LABS: AST(SGOT) 54 U/L (15-37); Alanine Aminotransfer ALT/SGPT 45 U/L (13-56); Alkaline Phosphatase 82 U/L (45-117); Anion Gap 8 (5-15); BUN 9 mg/dL (7-18); BUN/Creat Ratio 9.6 RATIO (10-20); Calcium,Total 9.1 mg/dL (8.5-10.1); Chloride 101 mmol/L (98-107); Creatinine, Serum 0.94 mg/dL (0.55-1.02); EST Glomerular Filtration Rate 74 mL/min (>60); Est Glom Filt Rate - Afr Amer 89 mL/min (>60); Estimated Creatinine Clearance 71.73 ml/min; Globulin 4.1 g/dL (2.2-4.2); Glucose 106 mg/dL (74-106); Potassium 3.3 mmol/L (3.5-5.1); Protein, Total 8.1 g/dL (6.4-8.2); Sodium Level 134 mmol/L (136-145)
[2023-12-19 16:03] VITALS: BP 103/58; PULSE 98; RESP 16; O2SAT 98
[2023-12-19 16:04] LABS: Color, Urine Yellow (Yellow); Glucose, Dipstick Normal (Normal); Ketone-Dipstick 50 mg/dl (Negative); Leukocyte Esterase-Dipstick 25 /ul (Negative); Nitrite-Dipstick Negative (Negative); Occult Blood-Urine 10 /ul (Negative); Protein-Dipstick 100 mg/dl (Negative); Urine Clarity Clear (Clear); Urine Urobilinogen 1 mg/dl (Normal)
[2023-12-19 16:09] LABS: Urine Bilirubin Dipstick 1 mg/dL (Negative)
[2023-12-19 16:18] LABS: Bacteria 2+ /hpf (None Seen); Mucous, Urine 2+ /hpf (<or=2+); Red Blood Cells-Urine 0-5 SEEN /hpf (0-5); Renal Epithelial Cells 0-5 SEEN /hpf (0-5); Squamous Epithelial Cells - UA 0-5 SEEN /hpf (5-10); White Blood Cells 0-5 SEEN /hpf (0-5)
[2023-12-19 16:41] VITALS: BP 99/60; PULSE 80; RESP 16; TEMP 36.6; O2SAT 99
== END 2023-12-19 16:45 | disposition home or self-care (01) ==
PROVIDERS: Emergency Provider Emergency Medicine; Visit Provider Emergency Medicine
DX: R11.2 Nausea with vomiting, unspecified (principal); R19.7 Diarrhea, unspecified; E86.0 Dehydration; F17.210 Nicotine dependence, cigarettes, uncomplicated
CPT/HCPCS: 80053; 81001; 84703; 85025; 96361; 96374; 96375; 99283; J7030; A4216; J2405

== ENCOUNTER → 2024-01-25 | Outpatient (CLI) | payer MEDICAID, SELFPAY ==
[2024-01-25 13:26] LABS: ALB/GLOB Ratio 1.2 RATIO (0.9-2.4); AST(SGOT) 14 U/L (15-37); Alanine Aminotransfer ALT/SGPT 21 U/L (13-56); Albumin, Serum 4.1 g/dL (3.2-5.0); Alkaline Phosphatase 67 U/L (45-117); Anion Gap 5 (5-15); BUN 11 mg/dL (7-18); BUN/Creat Ratio 15.2 RATIO (10-20); Calcium,Total 9.4 mg/dL (8.5-10.1); Chloride 107 mmol/L (98-107); Creatinine, Serum 0.72 mg/dL (0.55-1.02); EST Glomerular Filtration Rate 99 mL/min (>60); Est Glom Filt Rate - Afr Amer 120 mL/min (>60); Globulin 3.5 g/dL (2.2-4.2); Glucose 90 mg/dL (74-106); Protein, Total 7.6 g/dL (6.4-8.2); Sodium Level 137 mmol/L (136-145)
== END | disposition home or self-care (01) ==
LOC: BIMLAB 09:12
PROVIDERS: Referring Provider Physician Assistant; Visit Provider Physician Assistant
DX: A07.2 Cryptosporidiosis (principal)
CPT/HCPCS: 36415; 80053

== ENCOUNTER 2024-03-09 16:16 | Emergency (ER) | payer MEDICAID, SELFPAY ==
[2024-03-09 16:17] VITALS: PULSE 85; RESP 18; TEMP 36.3; O2SAT 99; BMI 22.4
[2024-03-09 16:41] VITALS: O2SAT 98
[2024-03-09 18:29] VITALS: BP 112/80; PULSE 72; RESP 16; TEMP 36.6; O2SAT 98
== END 2024-03-09 18:38 | disposition home or self-care (01) ==
PROVIDERS: Emergency Provider Emergency Medicine; Visit Provider Emergency Medicine
DX: M79.604 Pain in right leg (principal); M79.605 Pain in left leg; F17.210 Nicotine dependence, cigarettes, uncomplicated; F17.290 Nicotine dependence, other tobacco product, uncomplicated; V43.52XA Car driver injured in collision with other type car in traffic accident, initial encounter
CPT/HCPCS: 73562; 73590; 99282

== ENCOUNTER → 2024-12-19 | Outpatient (CLI) | payer MEDICAID, SELFPAY | END | disposition home or self-care (01) | LOC: LABSPEC 15:55 | PROVIDERS: Visit Provider Advanced Practice Midwife | DX: R35.0 Frequency of micturition (principal) | CPT/HCPCS: 87086 ==